=== PATIENT | female | born 1980 | race Caucasian/White ===

== ENCOUNTER 2017-11-02 08:48 | Outpatient (CLI) | payer BC | END 2017-11-02 20:21 | disposition home or self-care (01) | LOC: SUS 08:48 | PROVIDERS: ATTEND Family Medicine | DX: N63.20 Unspecified lump in the left breast, unspecified quadrant (principal) | CPT/HCPCS: 76642 ==

== ENCOUNTER 2017-11-16 13:05 | Outpatient (CLI) | payer BC | END 2017-11-16 20:00 | disposition home or self-care (01) | LOC: SMA 13:05 | PROVIDERS: ATTEND Family Medicine | DX: N63.20 Unspecified lump in the left breast, unspecified quadrant (principal); R92.1 Mammographic calcification found on diagnostic imaging of breast; N64.89 Other specified disorders of breast | CPT/HCPCS: 77066 ==